=== PATIENT | female | born 1930 | race African-American/Black ===

== ENCOUNTER → 2017-08-30 | Outpatient (CLI) | payer MEDICARE, OTHER ==
[2017-08-30 11:18] LABS: ALBUMIN 3.4 g/dL (3.4-5.0); ALBUMIN/GLOBULIN RATIO 0.7 (1.0-1.7); CALCIUM 9.9 mg/dL (8.5-10.1); CREATININE 0.8 mg/dL (0.6-1.0); GFR 82.3; TOTAL BILIRUBIN 0.4 mg/dL (0.2-1.0); TOTAL PROTEIN 8.6 g/dL (6.4-8.2)
[2017-08-30 11:19] LABS: CHOLESTEROL/HDL RATIO 2.1
[2017-08-30 11:20] LABS: BASO # 0.1 x10^3/uL (0.0-0.2); BASO % 1 % (0-3); EOS % 4 % (0-3); HEMATOCRIT 37.8 % (36.0-47.0); HEMOGLOBIN 11.7 g/dL (12.0-15.5); LYMPH # 1.7 x10^3/uL (1.0-4.8); LYMPH % 29 % (24-48); MEAN CORPUSCULAR HEMOGLOBIN 26 pg (25-35); MEAN CORPUSCULAR HGB CONC 31 g/dL (31-37); MEAN CORPUSCULAR VOLUME 83 fL (79-100); MONO % 11 % (0-9); NEUT % 56 % (31-73); PLATELET COUNT 250 x10^3/uL (140-400); RED BLOOD COUNT 4.58 x10^6/uL (3.50-5.40); RED CELL DISTRIBUTION WIDTH 15.4 % (11.5-14.5); WHITE BLOOD COUNT 5.9 x10^3/uL (4.0-11.0)
[2017-08-30 11:26] LABS: BILIRUBIN,URINE NEGATIVE (NEG); GLUCOSE,URINE NEGATIVE (NEG); NITRITE,URINE NEGATIVE (NEG); PROTEIN,URINE NEGATIVE (NEG-TRACE); UROBILINOGEN,URINE 0.2 mg/dL (0.2 mg/dL)
[2017-08-30 11:40] LABS: BACTERIA,URINE FEW /HPF (0-FEW)
[2017-08-30 11:41] LABS: SQUAMOUS EPITHELIAL CELL,UR FEW /LPF
--- NOTE | 2017-08-30 15:08 | RAD ---
EXAM: Mandible 4 views. HISTORY: Palpable focus along the right aspect of the chin. COMPARISON: None. FINDINGS: An osseous excrescence along the right aspect of the body of the mandible appears to span 17 x 3 mm. It is somewhat ill-defined without a clearly established outer cortex. This is indeterminate. No associated lytic lesion is seen. No fractures are or other lesions are seen elsewhere. IMPRESSION: 1. 17 mm exophytic osseous lesion along the right aspect of the body of the mandible, not well delineated. CT of the mandible is recommended for further evaluation.
== END | disposition home or self-care (01) ==
LOC: RAD 10:12
PROVIDERS: ATTEND Internal Medicine
DX: I10 Essential (primary) hypertension (principal); M60.89 Other myositis, multiple sites
CPT/HCPCS: 36415; 70110; 80053; 80061; 81001; 83036; 84443; 85025; 87086

== ENCOUNTER 2018-12-03 14:16 | Inpatient (IN) | payer MEDICARE, OTHER ==
[2018-12-03] VITALS (8 sets, daily range): BP systolic 90–169; BP diastolic 52–93
[~2018-12-03] VITALS: Ht 157.5 cm; Wt 54.0 kg
[2018-12-03 15:40] LABS: BASO % 1 % (0-3); EOS # 0.1 x10^3/uL (0.0-0.7); EOS % 1 % (0-3); HEMATOCRIT 34.8 % (36.0-47.0); HEMOGLOBIN 11.1 g/dL (12.0-15.5); LYMPH # 1.5 x10^3/uL (1.0-4.8); LYMPH % 26 % (24-48); MEAN CORPUSCULAR HEMOGLOBIN 26 pg (25-35); MEAN CORPUSCULAR HGB CONC 32 g/dL (31-37); MEAN CORPUSCULAR VOLUME 81 fL (79-100); MONO # 0.5 x10^3/uL (0.0-1.1); MONO % 9 % (0-9); NEUT # 3.7 x10^3uL (1.8-7.7); NEUT % 64 % (31-73); PLATELET COUNT 261 x10^3/uL (140-400); RED BLOOD COUNT 4.29 x10^6/uL (3.50-5.40); RED CELL DISTRIBUTION WIDTH 15.8 % (11.5-14.5); WHITE BLOOD COUNT 5.8 x10^3/uL (4.0-11.0)
[2018-12-03 15:47] LABS: CALCIUM 9.4 mg/dL (8.5-10.1); CREATININE 0.7 mg/dL (0.6-1.0); GFR 95.8; POTASSIUM 4.1 mmol/L (3.5-5.1)
[2018-12-03 15:50] LABS: FECAL OB PT POSITIVE (NEG)
[2018-12-03 15:52] LABS: PROTHROMBIN TIME PATIENT 13.4 SEC (11.7-14.0)
--- NOTE | 2018-12-03 15:52 | PHYS DOC ---
Adult General Chief Complaint Chief Complaint: RECTAL BLEED HPI HPI Patient is a 87 year old female who presents with female with a transient painful if she had had diarrhea and had a bloody stool. She states she didn't went home and had another bloody stool and had some clots. Patient denies any pain. Review of Systems Review of Systems Constitutional: Denies fever or chills [] Eyes: Denies change in visual acuity, redness, or eye pain [] HENT: Denies nasal congestion or sore throat [] Respiratory: Denies cough or shortness of breath [] Cardiovascular: No additional information not addressed in HPI [] GI: Denies abdominal pain, nausea, vomiting. + bloody stools denies or diarrhea [] : Denies dysuria or hematuria [] Musculoskeletal: Denies back pain or joint pain [] Integument: Denies rash or skin lesions [] Neurologic: Denies headache, focal weakness or sensory changes [] All other systems were reviewed and found to be within normal limits, except as documented in this note. Current Medications Current Medications Current Medications Medications (Trade) Dose Ordered Sig/Antelmo Start Time Stop Time Status Last Admin Dose Admin Sodium Chloride 1,000 ml @ 1,000 mls/hr 1X ONCE 12/03/18 16:00 12/03/18 16:59 DC 12/03/18 16:18 1,000 MLS/HR Allergies Allergies Allergies Coded Allergies Type Severity Reaction Last Updated Verified No Known Drug Allergies 12/03/18 No Physical Exam Physical Exam Constitutional: Well developed, well nourished, no acute distress, non-toxic appearance. [] HENT: Normocephalic, atraumatic, bilateral external ears normal, oropharynx moist, no oral exudates, nose normal. [] Eyes: PERRLA, EOMI, conjunctiva normal, no discharge. [] Neck: Normal range of motion, no tenderness, supple, no stridor. [] Cardiovascular:Heart rate regular rhythm, no murmur [] Lungs & Thorax: Bilateral breath sounds clear to auscultation [] Abdomen: Bowel sounds normal, soft, no tenderness, no masses, no pulsatile masses. Dane blood in rectum. [] Skin: Warm, dry, no erythema, no rash. [] Back: No tenderness, no CVA tenderness. [] Extremities: No tenderness, no cyanosis, no clubbing, ROM intact, no edema. [] Neurologic: Alert and oriented X 3, normal motor function, normal sensory function, no focal deficits noted. [] Psychologic: Affect normal, judgement normal, mood normal. [] Current Patient Data Vital Signs Vital Signs Date Time Temp Pulse Resp B/P (MAP) Pulse Ox O2 Delivery O2 Flow Rate FiO2 12/03/18 15:10 98.0 90 16 163/79 (107) 94 Room Air 98.0 Lab Values Laboratory Tests Test 12/03/18 15:00 12/03/18 15:03 12/03/18 15:10 Stool Occult Blood Positive (NEG) Urine Collection Type U cath Urine Color Yellow Urine Clarity Clear Urine pH 5.0 Urine Specific [place] 1.025 Urine Protein Negative mg/dL (NEG-TRACE) Urine Glucose (UA) Negative mg/dL (NEG) Urine Ketones (Stick) Negative mg/dL (NEG) Urine Blood Negative (NEG) Urine Nitrite Negative (NEG) Urine Bilirubin Small (NEG) Urine Urobilinogen Dipstick 0.2 mg/dL (0.2 mg/dL) Urine Leukocyte Esterase Negative (NEG) Urine RBC 0 /HPF (0-2) Urine WBC 0 /HPF (0-4) Urine Squamous Epithelial Cells Occ /LPF Urine Transitional Epithelial Cells Occ /LPF Urine Bacteria 0 /HPF (0-FEW) Urine Mucus Marked /LPF White Blood Count 5.8 x10^3/uL (4.0-11.0) Red Blood Count 4.29 x10^6/uL (3.50-5.40) Hemoglobin 11.1 g/dL (12.0-15.5) L Hematocrit 34.8 % (36.0-47.0) L Mean Corpuscular Volume 81 fL (79-100) Mean Corpuscular Hemoglobin 26 pg (25-35) Mean Corpuscular Hemoglobin Concent 32 g/dL (31-37) Red Cell Distribution Width 15.8 % (11.5-14.5) H Platelet Count 261 x10^3/uL (140-400) Neutrophils (%) (Auto) 64 % (31-73) Lymphocytes (%) (Auto) 26 % (24-48) Monocytes (%) (Auto) 9 % (0-9) Eosinophils (%) (Auto) 1 % (0-3) Basophils (%) (Auto) 1 % (0-3) Neutrophils # (Auto) 3.7 x10^3uL (1.8-7.7) Lymphocytes # (Auto) 1.5 x10^3/uL (1.0-4.8) Monocytes # (Auto) 0.5 x10^3/uL (0.0-1.1) Eosinophils # (Auto) 0.1 x10^3/uL (0.0-0.7) Basophils # (Auto) 0.0 x10^3/uL (0.0-0.2) Prothrombin Time 13.4 SEC (11.7-14.0) Prothrombin Time INR 1.1 (0.8-1.1) Sodium Level 145 mmol/L (136-145) Potassium Level 4.1 mmol/L (3.5-5.1) Chloride Level 105 mmol/L (98-107) Carbon Dioxide Level 32 mmol/L (21-32) Anion Gap 8 (6-14) Blood Urea Nitrogen 20 mg/dL (7-20) Creatinine 0.7 mg/dL (0.6-1.0) Estimated GFR (Cockcroft-Gault) 95.8 Glucose Level 114 mg/dL (70-99) H Calcium Level 9.4 mg/dL (8.5-10.1) Laboratory Tests 12/03/18 15:10 Laboratory Tests 12/03/18 15:10 EKG EKG [] Radiology/Procedures Radiology/Procedures CT ABD PELV Impressions: [facility] [address] [place], [place] [id number] IMAGING REPORT Signed PATIENT: ALEXANDER CALI ACCOUNT: [id number] : 1930 LOCATION: ER AGE: 87 SEX: F EXAM STATUS: REG ER ORD. PHYSICIAN: JOHN TELLO APRN REASON: RECTAL BLEEDING PROCEDURE: CT ABD PELV W/ IV CONTRST ONLY Examination: CT ABD PELV W/ IV CONTRST ONLY History: RECTAL BLEEDING
IV OMNI 300 75 MLS Comparison/Correlation: None Findings: Axial images of the abdomen and pelvis were obtained following IV contrast. Sagittal and coronal reformatted images were provided. Linear scarring or atelectasis at the right lung base is present. Motion is evident at the right lung base upper abdomen slightly limiting assessment. Liver is normal. Spleen is normal. Pancreas is normal. Adrenal glands are normal. Bilateral low-attenuation renal lesions which are too small to characterize are present. These may represent cysts. Right renal inferior pole nonobstructive 1.7 cm diameter calculus is present. Infrarenal fusiform abdominal aortic aneurysm measuring up to 3.2 cm diameter is present. This has a length of 6 cm. Atheromatous involvement is present. Ectasia of the common iliac arteries noted. Urinary bladder is unremarkable. Marked diverticulosis of the colon is present without findings of acute inflammation. No bowel obstruction. No definite inflammatory findings about the cecum. Minimal mesenteric fat may limit assessment however. No extraluminal gas. No loculated collections. L1-2 significant disc space narrowing is present. Severe L5/S1 disc space narrowing is present. Impression: Marked diverticulosis. No evidence of mass lesion or inflammatory process although evaluation is somewhat limited with minimal mesenteric fat and lack of oral/rectal contrast. Nonobstructive right renal calculus. Fusiform abdominal aortic aneurysm. PQRS Compliance Statement: One or more of the following individualized dose reduction techniques were utilized for this examination: 1. Automated exposure control 2. Adjustment of the mA and/or kV according to patient size 3. Use of iterative reconstruction technique Electronically signed by: Henok Pollack MD (12/03/2018 5:37 PM) [facility] DICTATED and SIGNED BY: HENOK POLLACK MD DATE: 12/03/18 1726 Course & Med Decision Making Course & Med Decision Making Patient is a 87 year old female who presents with female with a transient painful if she had had diarrhea and had a bloody stool. She states she didn't went home and had another bloody stool and had some clots. Patient denies any pain, dizziness, shortness of air, chest pain, syncope, weakness, recent illness , nausea, vomiting, abdominal pain, numbness or tingling. Vital signs are within normal limits. Abdomen is soft and nontender. Lungs are clear to auscultation all lobes. It is membranes are moist and pink. Skin is pink warm and dry. Patient speaks in full clear sentences. Neurologically intact. PERRLA. No extremity swelling. Patient states she takes ibuprofen daily for arthritis. Fecal occult positive. Blood work within normal limits. 1634: Have spoken to Dr. Quintana about admission for the patient. Dr Quintana has given me admission orders and states that his CT comes back negative to order a GI bleed scan. Patient is stable and in no distress. CT ABD PELV shows Marked diverticulosis. No evidence of mass lesion or inflammatory process although evaluation is somewhat limited with minimal mesenteric fat and lack of oral/rectal contrast. Nonobstructive right renal calculus. Fusiform abdominal aortic aneurysm. 1800: I have talked to Dr. Bennett with GI to make him aware of the patient. No orders Given at this time. Rectal Exam: Normal tone, No mass, Positive control Stool: Bloody Brown Guaiac: Positive 1841: blood pressure has risen to 209/95 with heart rate of 93. Patient is not dizzy, light headed or soa. Patient is alert and oriented and ambulatory. Patient has now has 5 blood stools total only 3rd since been in ED. No history of hypertension. I have spoken to Dr Quintana about the patients hemoglobin drop from 11.1 to 9.9 and her continued stools. No orders at this time. Dragon Disclaimer Dragon Disclaimer This electronic medical record was generated, in whole or in part, using a voice recognition dictation system. Departure Departure Impression: Primary Impression: GI bleed Disposition: ADMITTED INPATIENT Admitting Physician: Ranjith Quintana Condition: STABLE Referrals: RANJITH QUINTANA MD (PCP) Problem Qualifiers Primary Impression: GI bleed GI bleed type/associated pathology: unspecified gastrointestinal hemorrhage type Qualified Codes: K92.2 - Gastrointestinal hemorrhage, unspecified JOHN TELLO SELF STORAGE MANAGER Dec 03, 2018 15:52
[2018-12-03] MEDS ORDERED: IV NORMAL SALINE 1000ML BAG 1,000 ML IV ONE (16:00)
[2018-12-03] MEDS ORDERED: CONTRAST GIVEN. MC PRN (16:45)
[2018-12-03] MEDS ORDERED: ONDANSETRON PF 4 MG/2 ML VIAL. IV PRN (16:45)
[2018-12-03] MEDS ORDERED: IOHEXOL 300 MG/ML 100ML VIAL. IV ONE (16:45)
[2018-12-03 16:57] LABS: BILIRUBIN,URINE SMALL (NEG); CLARITY,URINE CLEAR; COLOR,URINE YELLOW; NITRITE,URINE NEGATIVE (NEG); PROTEIN,URINE NEGATIVE (NEG-TRACE); UROBILINOGEN,URINE 0.2 mg/dL (0.2 mg/dL)
[2018-12-03 17:05] LABS: BACTERIA,URINE 0 /HPF (0-FEW); RBC,URINE 0 /HPF (0-2); SQUAMOUS EPITHELIAL CELL,UR OCC /LPF; WBC,URINE 0 /HPF (0-4)
--- NOTE | 2018-12-03 17:40 | RAD ---
Examination: CT ABD PELV W/ IV CONTRST ONLY History: RECTAL BLEEDING
IV OMNI 300 75 MLS Comparison/Correlation: None Findings: Axial images of the abdomen and pelvis were obtained following IV contrast. Sagittal and coronal reformatted images were provided. Linear scarring or atelectasis at the right lung base is present. Motion is evident at the right lung base upper abdomen slightly limiting assessment. Liver is normal. Spleen is normal. Pancreas is normal. Adrenal glands are normal. Bilateral low-attenuation renal lesions which are too small to characterize are present. These may represent cysts. Right renal inferior pole nonobstructive 1.7 cm diameter calculus is present. Infrarenal fusiform abdominal aortic aneurysm measuring up to 3.2 cm diameter is present. This has a length of 6 cm. Atheromatous involvement is present. Ectasia of the common iliac arteries noted. Urinary bladder is unremarkable. Marked diverticulosis of the colon is present without findings of acute inflammation. No bowel obstruction. No definite inflammatory findings about the cecum. Minimal mesenteric fat may limit assessment however. No extraluminal gas. No loculated collections. L1-2 significant disc space narrowing is present. Severe L5/S1 disc space narrowing is present. Impression: Marked diverticulosis. No evidence of mass lesion or inflammatory process although evaluation is somewhat limited with minimal mesenteric fat and lack of oral/rectal contrast. Nonobstructive right renal calculus. Fusiform abdominal aortic aneurysm. PQRS Compliance Statement: One or more of the following individualized dose reduction techniques were utilized for this examination: 1. Automated exposure control 2. Adjustment of the mA and/or kV according to patient size 3. Use of iterative reconstruction technique Electronically signed by: Henok Weathers MD (12/03/2018 5:37 PM) [facility]
[2018-12-03] MEDS ORDERED: cloNIDine HCL 0.1 MG TABLET PO ONE (18:45)
--- NOTE | 2018-12-03 19:30 | NUR ---
PATIENT TO ROOM 111 AT 1925, ADMITTED TO DR QUINTANA FOR GI BLEED. PT STATES SHE HAD BLOODY STOOL X2 WITH CLOTS AT HOME, AND CONTINUED TO HAVE BLOODY STOOLS IN ER (HGB DROP FROM 11.1 TO 9.9 WHILE IN ER.) UPON ARRIVAL PATIENT A&OX4, ALL VSS, NO COMPLAINTS OF PAIN. PT STILL WITH BRIGHT RED BLOODY STOOLS, VOID VIA BEDPAN FAMILY AT BEDSIDE- WAITING FOR BLEED SCAN
[2018-12-03] MEDS ORDERED: HEPARIN for NUC MED 500 UNIT/5 ML DISP.SYRIN. IV ONE (20:00)
--- NOTE | 2018-12-03 20:54 | NUR ---
PT CURRENTLY GETTING BLEED SCAN, RN AT BEDSIDE WITH PATIENT ON MONITOR.
[2018-12-03] MEDS: IV NORMAL SALINE 1000ML BAG 1,000 ML IV SCH (21:00)
--- NOTE | 2018-12-03 21:48 | RAD ---
NUCLEAR MEDICINE TAGGED RBC SCAN 12/03/2018 Clinical Indication: Bright red blood per rectum Technique: Patient was injected with 25.4 mCi of technetium 99m labeled red blood cells using Ultratag technique. Then anterior dynamic images of the abdomen were obtained only for 30 minutes as patient's nurse. The examination due to patient condition. Findings: There is abnormal focal accumulation of tracer in the left upper quadrant near the splenic flexure with transient distally. IMPRESSION: Findings most consistent with active GI bleed, likely from the splenic flexure. This result was discussed with pateint's nurse, Sloane , by telephone at 9:45 PM 12/03/[address] Anthony Agosto. Electronically signed by: Anthony Agosto MD (12/03/2018 9:45 PM) [employer]
[2018-12-03 22:00] LABS: HEMATOCRIT 23.8 % (36.0-47.0); HEMOGLOBIN 7.4 g/dL (12.0-15.5); RED BLOOD COUNT 2.89 x10^6/uL (3.50-5.40); RED CELL DISTRIBUTION WIDTH 15.5 % (11.5-14.5)
--- NOTE | 2018-12-03 22:13 | NUR ---
PT BACK FROM BLEEDING SCAN- STILL PASSING BRIGHT RED STOOLS. HGB RECHECKED, DOWN TO 7.4 FROM 9.9, BLEEDING SCAN POSITIVE. DR QUINTANA CALLED AT 2205- NOTIFIED OF BLEEDING SCAN RESULTS AND RECENT LABS. NO BLOOD TO BE GIVEN AT THIS TIME, WILL RECHECK H&H IN THE MORNING. CONSULTS PLACED FOR GENERAL SURGEON AND IR. FAMILY UPDATED, PT RESTING PEACEFULLY ALL VSS.
--- NOTE | 2018-12-03 22:40 | NUR ---
DR KAPADIA CALLED AT 2230- NOTIFIED OF BLEED SCAN RESULTS AND MOST RECENT HGB. ORDERS RECEIVED TO INFUSED 1 UNIT PRBCS AND RECHECK IN THE AM.
[2018-12-04] VITALS (24 sets, daily range): BP systolic 89–155; BP diastolic 43–72
[2018-12-04 04:54] LABS: BASO % 1 % (0-3); EOS # 0.1 x10^3/uL (0.0-0.7); EOS % 1 % (0-3); HEMATOCRIT 28.3 % (36.0-47.0); HEMOGLOBIN 9.2 g/dL (12.0-15.5); LYMPH # 1.8 x10^3/uL (1.0-4.8); LYMPH % 28 % (24-48); MEAN CORPUSCULAR HEMOGLOBIN 27 pg (25-35); MEAN CORPUSCULAR HGB CONC 32 g/dL (31-37); MEAN CORPUSCULAR VOLUME 84 fL (79-100); MONO # 0.7 x10^3/uL (0.0-1.1); MONO % 11 % (0-9); NEUT # 3.9 x10^3uL (1.8-7.7); NEUT % 60 % (31-73); PLATELET COUNT 175 x10^3/uL (140-400); RED BLOOD COUNT 3.39 x10^6/uL (3.50-5.40); RED CELL DISTRIBUTION WIDTH 15.4 % (11.5-14.5); WHITE BLOOD COUNT 6.5 x10^3/uL (4.0-11.0)
[2018-12-04 05:23] LABS: ALBUMIN 2.3 g/dL (3.4-5.0); ALBUMIN/GLOBULIN RATIO 0.7 (1.0-1.7); CREATININE 0.7 mg/dL (0.6-1.0); GFR 95.8; POTASSIUM 4.1 mmol/L (3.5-5.1); TOTAL BILIRUBIN 0.5 mg/dL (0.2-1.0); TOTAL PROTEIN 5.6 g/dL (6.4-8.2)
[2018-12-04] MEDS: IV NORMAL SALINE 1000ML BAG 1,000 ML IV SCH (08:19)
--- NOTE | 2018-12-04 08:27 | PDOC2 ---
MAIK JAY HARP REPAIRER 12/04/18 0827: CONSULT Date of Consult Date of Consult DATE: 12/04/18 TIME: 08:18 Reason for Consult Reason for Consult: gi bleed Referring Physician Referring Physician: ER Identification/Chief Complaint Chief Complaint rectal bleeding Source Source: Chart review, Patient History of Present Illness Reason for Visit: Acute rectal bleeding starting yesterday. Denies any abdominal pain or nausea/ emesis. No lightheaded or dizziness. No previous issues with GI bleeding. She does take ibuprofen daily for joint pain. Nursing reports bleeding has slowed down, still some clots in stool Unit of blood last night Past Surgical History Past Surgical History: Hysterectomy Family History Family History: Other (no colon cancer) Social History No ALCOHOL: none Drugs: None Current Problem List Problem List Problems Medical Problems: (1) GI bleed Status: Acute Current Medications Current Medications Current Medications Sodium Chloride 1,000 ml @ 1,000 mls/hr 1X ONCE IV Last administered on at 16:18; Start 12/03/18 at 16:00; Stop 12/03/18 at 16:59; Status DC Iohexol (Omnipaque 300 Mg/ml) 75 ml 1X ONCE IV Last administered on 12/03/18at 17:11; Start 12/03/18 at 16:45; Stop 12/03/18 at 16:46; Status DC Info (CONTRAST GIVEN -- Rx MONITORING) 1 each PRN DAILY PRN MC SEE COMMENTS; Start 12/03/18 at 16:45; Stop 12/05/18 at 16:44 Ondansetron HCl (Zofran) 4 mg PRN Q8HRS PRN IV NAUSEA/VOMITING Last administered on 12/03/18at 21:33; Start 12/03/18 at 16:45; Stop 12/04/18 at 16:44 Sodium Chloride 1,000 ml @ 75 mls/hr [id number] IV Last administered on at 21:00; Start 12/03/18 at 16:43; Stop 12/04/18 at 16:42 Clonidine HCl (Catapres) 0.1 mg 1X ONCE PO Last administered on 12/03/18at 19: 10; Start 12/03/18 at 18:45; Stop 12/03/18 at 18:46; Status DC Heparin Sodium (Porcine) (HEPARIN for NUC MED) 100 unit 1X ONCE IV ; Start at 20:00; Stop 12/03/18 at 20:12; Status DC Allergies Allergies: Coded Allergies: No Known Drug Allergies (Unverified , 12/03/18) ROS General: No: Chills, Other (fevers) PSYCHOLOGICAL ROS: No: Anxiety, Depression Eyes: No Blurry vision, No Double vision HEENT: No: Heacaches, Sore Throat Hematological and Lymphatic: YES: Bleeding Problems; No: Blood Clots Respiratory: No: Cough, Shortness of breath Cardiovascular: No Chest Pain, No Palpitations Gastrointestinal: No Nausea, No Vomiting, No Abdominal Pain Genitourinary: No Dysuria, No Hematuria Musculoskeletal: No Joint Pain, No Muscle Pain Neurological: No Behavorial Changes, No Impaired Coord/balance Skin: No Pruritus, No Rash Physical Exam General: Alert, Oriented X3, Cooperative, No acute distress HEENT: PERRLA, Mucous membr. moist/pink Lungs: Clear to auscultation, Normal air movement Heart: Regular rate, Normal S1, Normal S2, No murmurs Abdomen: Soft, No tenderness, Other (ND) Extremities: No clubbing, No cyanosis Skin: No rashes, No breakdown Neuro: Normal gait, Normal speech Psych/Mental Status: Mental status NL, Mood NL MUSCULOSKELETAL: No deformity, No swelling Vitals VITALS Vital Signs Date Time Temp Pulse Resp B/P (MAP) Pulse Ox O2 Delivery O2 Flow Rate FiO2 12/04/18 06:00 77 12 122/49 (73) 100 Nasal Cannula 1.0 12/04/18 04:00 97.4 97.4 Labs Labs Laboratory Tests Test 12/03/18 15:00 12/03/18 15:03 12/03/18 15:10 12/03/18 18:00 Stool Occult Blood Positive (NEG) Urine Collection Type U cath Urine Color Yellow Urine Clarity Clear Urine pH 5.0 Urine Specific [place] 1.025 Urine Protein Negative mg/dL (NEG-TRACE) Urine Glucose (UA) Negative mg/dL (NEG) Urine Ketones (Stick) Negative mg/dL (NEG) Urine Blood Negative (NEG) Urine Nitrite Negative (NEG) Urine Bilirubin Small (NEG) Urine Urobilinogen Dipstick 0.2 mg/dL (0.2 mg/dL) Urine Leukocyte Esterase Negative (NEG) Urine RBC 0 /HPF (0-2) Urine WBC 0 /HPF (0-4) Urine Squamous Epithelial Cells Occ /LPF Urine Transitional Epithelial Cells Occ /LPF Urine Bacteria 0 /HPF (0-FEW) Urine Mucus Marked /LPF White Blood Count 5.8 x10^3/uL (4.0-11.0) Red Blood Count 4.29 x10^6/uL (3.50-5.40) Hemoglobin 11.1 g/dL (12.0-15.5) 9.9 g/dL (12.0-15.5) Hematocrit 34.8 % (36.0-47.0) Mean Corpuscular Volume 81 fL (79-100) Mean Corpuscular Hemoglobin 26 pg (25-35) Mean Corpuscular Hemoglobin Concent 32 g/dL (31-37) Red Cell Distribution Width 15.8 % (11.5-14.5) Platelet Count 261 x10^3/uL (140-400) Neutrophils (%) (Auto) 64 % (31-73) Lymphocytes (%) (Auto) 26 % (24-48) Monocytes (%) (Auto) 9 % (0-9) Eosinophils (%) (Auto) 1 % (0-3) Basophils (%) (Auto) 1 % (0-3) Neutrophils # (Auto) 3.7 x10^3uL (1.8-7.7) Lymphocytes # (Auto) 1.5 x10^3/uL (1.0-4.8) Monocytes # (Auto) 0.5 x10^3/uL (0.0-1.1) Eosinophils # (Auto) 0.1 x10^3/uL (0.0-0.7) Basophils # (Auto) 0.0 x10^3/uL (0.0-0.2) Prothrombin Time 13.4 SEC (11.7-14.0) Prothromb Time International Ratio 1.1 (0.8-1.1) Sodium Level 145 mmol/L (136-145) Potassium Level 4.1 mmol/L (3.5-5.1) Chloride Level 105 mmol/L (98-107) Carbon Dioxide Level 32 mmol/L (21-32) Anion Gap 8 (6-14) Blood Urea Nitrogen 20 mg/dL (7-20) Creatinine 0.7 mg/dL (0.6-1.0) Estimated GFR (Cockcroft-Gault) 95.8 Glucose Level 114 mg/dL (70-99) Calcium Level 9.4 mg/dL (8.5-10.1) Test 12/03/18 21:55 12/04/18 04:30 White Blood Count 6.0 x10^3/uL (4.0-11.0) 6.5 x10^3/uL (4.0-11.0) Red Blood Count 2.89 x10^6/uL (3.50-5.40) 3.39 x10^6/uL (3.50-5.40) Hemoglobin 7.4 g/dL (12.0-15.5) 9.2 g/dL (12.0-15.5) Hematocrit 23.8 % (36.0-47.0) 28.3 % (36.0-47.0) Mean Corpuscular Volume 82 fL (79-100) 84 fL (79-100) Mean Corpuscular Hemoglobin 26 pg (25-35) 27 pg (25-35) Mean Corpuscular Hemoglobin Concent 31 g/dL (31-37) 32 g/dL (31-37) Red Cell Distribution Width 15.5 % (11.5-14.5) 15.4 % (11.5-14.5) Platelet Count 198 x10^3/uL (140-400) 175 x10^3/uL (140-400) Neutrophils (%) (Auto) 60 % (31-73) Lymphocytes (%) (Auto) 28 % (24-48) Monocytes (%) (Auto) 11 % (0-9) Eosinophils (%) (Auto) 1 % (0-3) Basophils (%) (Auto) 1 % (0-3) Neutrophils # (Auto) 3.9 x10^3uL (1.8-7.7) Lymphocytes # (Auto) 1.8 x10^3/uL (1.0-4.8) Monocytes # (Auto) 0.7 x10^3/uL (0.0-1.1) Eosinophils # (Auto) 0.1 x10^3/uL (0.0-0.7) Basophils # (Auto) 0.0 x10^3/uL (0.0-0.2) Sodium Level 146 mmol/L (136-145) Potassium Level 4.1 mmol/L (3.5-5.1) Chloride Level 109 mmol/L (98-107) Carbon Dioxide Level 31 mmol/L (21-32) Anion Gap 6 (6-14) Blood Urea Nitrogen 15 mg/dL (7-20) Creatinine 0.7 mg/dL (0.6-1.0) Estimated GFR (Cockcroft-Gault) 95.8 BUN/Creatinine Ratio 21 (6-20) Glucose Level 108 mg/dL (70-99) Calcium Level 8.0 mg/dL (8.5-10.1) Total Bilirubin 0.5 mg/dL (0.2-1.0) Aspartate Amino Transf (AST/SGOT) 12 U/L (15-37) Alanine Aminotransferase (ALT/SGPT) 11 U/L (14-59) Alkaline Phosphatase 57 U/L (46-116) Total Protein 5.6 g/dL (6.4-8.2) Albumin 2.3 g/dL (3.4-5.0) Albumin/Globulin Ratio 0.7 (1.0-1.7) Laboratory Tests Test 12/03/18 15:00 12/03/18 15:03 12/03/18 15:10 12/03/18 18:00 Stool Occult Blood Positive (NEG) Urine Collection Type U cath Urine Color Yellow Urine Clarity Clear Urine pH 5.0 Urine Specific [place] 1.025 Urine Protein Negative mg/dL (NEG-TRACE) Urine Glucose (UA) Negative mg/dL (NEG) Urine Ketones (Stick) Negative mg/dL (NEG) Urine Blood Negative (NEG) Urine Nitrite Negative (NEG) Urine Bilirubin Small (NEG) Urine Urobilinogen Dipstick 0.2 mg/dL (0.2 mg/dL) Urine Leukocyte Esterase Negative (NEG) Urine RBC 0 /HPF (0-2) Urine WBC 0 /HPF (0-4) Urine Squamous Epithelial Cells Occ /LPF Urine Transitional Epithelial Cells Occ /LPF Urine Bacteria 0 /HPF (0-FEW) Urine Mucus Marked /LPF White Blood Count 5.8 x10^3/uL (4.0-11.0) Red Blood Count 4.29 x10^6/uL (3.50-5.40) Hemoglobin 11.1 g/dL (12.0-15.5) 9.9 g/dL (12.0-15.5) Hematocrit 34.8 % (36.0-47.0) Mean Corpuscular Volume 81 fL (79-100) Mean Corpuscular Hemoglobin 26 pg (25-35) Mean Corpuscular Hemoglobin Concent 32 g/dL (31-37) Red Cell Distribution Width 15.8 % (11.5-14.5) Platelet Count 261 x10^3/uL (140-400) Neutrophils (%) (Auto) 64 % (31-73) Lymphocytes (%) (Auto) 26 % (24-48) Monocytes (%) (Auto) 9 % (0-9) Eosinophils (%) (Auto) 1 % (0-3) Basophils (%) (Auto) 1 % (0-3) Neutrophils # (Auto) 3.7 x10^3uL (1.8-7.7) Lymphocytes # (Auto) 1.5 x10^3/uL (1.0-4.8) Monocytes # (Auto) 0.5 x10^3/uL (0.0-1.1) Eosinophils # (Auto) 0.1 x10^3/uL (0.0-0.7) Basophils # (Auto) 0.0 x10^3/uL (0.0-0.2) Prothrombin Time 13.4 SEC (11.7-14.0) Prothromb Time International Ratio 1.1 (0.8-1.1) Sodium Level 145 mmol/L (136-145) Potassium Level 4.1 mmol/L (3.5-5.1) Chloride Level 105 mmol/L (98-107) Carbon Dioxide Level 32 mmol/L (21-32) Anion Gap 8 (6-14) Blood Urea Nitrogen 20 mg/dL (7-20) Creatinine 0.7 mg/dL (0.6-1.0) Estimated GFR (Cockcroft-Gault) 95.8 Glucose Level 114 mg/dL (70-99) Calcium Level 9.4 mg/dL (8.5-10.1) Test 12/03/18 21:55 12/04/18 04:30 White Blood Count 6.0 x10^3/uL (4.0-11.0) 6.5 x10^3/uL (4.0-11.0) Red Blood Count 2.89 x10^6/uL (3.50-5.40) 3.39 x10^6/uL (3.50-5.40) Hemoglobin 7.4 g/dL (12.0-15.5) 9.2 g/dL (12.0-15.5) Hematocrit 23.8 % (36.0-47.0) 28.3 % (36.0-47.0) Mean Corpuscular Volume 82 fL (79-100) 84 fL (79-100) Mean Corpuscular Hemoglobin 26 pg (25-35) 27 pg (25-35) Mean Corpuscular Hemoglobin Concent 31 g/dL (31-37) 32 g/dL (31-37) Red Cell Distribution Width 15.5 % (11.5-14.5) 15.4 % (11.5-14.5) Platelet Count 198 x10^3/uL (140-400) 175 x10^3/uL (140-400) Neutrophils (%) (Auto) 60 % (31-73) Lymphocytes (%) (Auto) 28 % (24-48) Monocytes (%) (Auto) 11 % (0-9) Eosinophils (%) (Auto) 1 % (0-3) Basophils (%) (Auto) 1 % (0-3) Neutrophils # (Auto) 3.9 x10^3uL (1.8-7.7) Lymphocytes # (Auto) 1.8 x10^3/uL (1.0-4.8) Monocytes # (Auto) 0.7 x10^3/uL (0.0-1.1) Eosinophils # (Auto) 0.1 x10^3/uL (0.0-0.7) Basophils # (Auto) 0.0 x10^3/uL (0.0-0.2) Sodium Level 146 mmol/L (136-145) Potassium Level 4.1 mmol/L (3.5-5.1) Chloride Level 109 mmol/L (98-107) Carbon Dioxide Level 31 mmol/L (21-32) Anion Gap 6 (6-14) Blood Urea Nitrogen 15 mg/dL (7-20) Creatinine 0.7 mg/dL (0.6-1.0) Estimated GFR (Cockcroft-Gault) 95.8 BUN/Creatinine Ratio 21 (6-20) Glucose Level 108 mg/dL (70-99) Calcium Level 8.0 mg/dL (8.5-10.1) Total Bilirubin 0.5 mg/dL (0.2-1.0) Aspartate Amino Transf (AST/SGOT) 12 U/L (15-37) Alanine Aminotransferase (ALT/SGPT) 11 U/L (14-59) Alkaline Phosphatase 57 U/L (46-116) Total Protein 5.6 g/dL (6.4-8.2) Albumin 2.3 g/dL (3.4-5.0) Albumin/Globulin Ratio 0.7 (1.0-1.7) Assessment/Plan Assessment/Plan GI bleed CT with diverticulosis, Bleeding scan concern for bleed in splenic flexure-- bleeding has slowed hgb 9, after transfusion will await IR consult MATTHEW GUZMAN MD 12/04/18 0939: CONSULT Assessment/Plan Assessment/Plan Pt seen and examined. Agree with Ms. Jay's note Pt without c/o, denies pain, N/V abd soft, Nd, NTTP nursing notes clots in stool have decreased hopefully will be self limiting, but will ask IR to evaluate Thanks for consult! MAIK JAY APRN Dec 04, 2018 08:27 MATTHEW GUZMAN MD Dec 04, 2018 09:39
--- NOTE | 2018-12-04 09:35 | PDOC ---
Provider Note Provider Note Pt seen in ICU.#[id number]. spoke with GI. SHADIA QUINTANA MD Dec 04, 2018 09:35
--- NOTE | 2018-12-04 09:43 | PDOC2 ---
GI CONSULT Reason For Consult: GI Bleed HPI: HPI: 87 y/o female seen in ICU earlier this morning. At [employer] yesterday while she was waiting for her niece to get the car, she felt like she might have diarrhea. By the time she reached the restroom, her underwear was soaked in blood - "in between red and black." Denies abd pain, sweating, SOA, lightheadedness. Bleeding happened a few times (she's not sure with or without stool) but is slowing down now. No similar symptoms in the past. Per RN, received in report that she passed stool with blood clots overnight. Denies reflux/heartburn, dysphagia, n/v, change in appetite, weight loss, and constipation. No previous EGD or colonoscopy. No GB, liver, pancreas, or PUD history. Says has labs with her PCP every 3 months. Takes ibuprofen PRN ( "maybe once a day") for bodyaches. She also takes a water pill " occasionally... when I feel like I need more water." Her friend is present toward the end of the exam - says she has a h/o sarcoidosis, pneumonia, and GERD. Initial Hgb was 11.1 (compared to 11.7 in 08/2017), then dropped to 7.4, then up to 9.2 s/p transfusion [address] showed diverticulosis and bleeding scan was positive in the splenic flexure. IR asked to see, surgery also following. PMH: PMH: ?HTN, ?sarcoidosis, ?GERD, diverticulosis, nephrolithiasis, AAA hysterectomy FH: Family History: No pertinent hx (denies GI cancers) Social History: Smoke: No ALCOHOL: none Drugs: None ROS: GEN: Denies fevers, chills, sweats HEENT: Denies blurred vision, sore throat CV: Denies chest pain RESP: Denies shortness of air, cough GI: Per HPI : Denies hematuria, dysuria ENDO: Denies weight changes NEURO: Denies confusion, dizziness MSK: Denies weakness, joint pain/swelling SKIN: Denies jaundice, pruritus Vitals: Vitals: Vital Signs Date Time Temp Pulse Resp B/P (MAP) Pulse Ox O2 Delivery O2 Flow Rate FiO2 12/04/18 09:00 80 12 116/57 (76) 100 Nasal Cannula 1.0 12/04/18 07:00 98.2 98.2 Labs: Labs: Laboratory Tests Test 12/03/18 15:00 12/03/18 15:03 12/03/18 15:10 12/03/18 18:00 Stool Occult Blood Positive (NEG) Urine Collection Type U cath Urine Color Yellow Urine Clarity Clear Urine pH 5.0 Urine Specific [facility] 1.025 Urine Protein Negative mg/dL (NEG-TRACE) Urine Glucose (UA) Negative mg/dL (NEG) Urine Ketones (Stick) Negative mg/dL (NEG) Urine Blood Negative (NEG) Urine Nitrite Negative (NEG) Urine Bilirubin Small (NEG) Urine Urobilinogen Dipstick 0.2 mg/dL (0.2 mg/dL) Urine Leukocyte Esterase Negative (NEG) Urine RBC 0 /HPF (0-2) Urine WBC 0 /HPF (0-4) Urine Squamous Epithelial Cells Occ /LPF Urine Transitional Epithelial Cells Occ /LPF Urine Bacteria 0 /HPF (0-FEW) Urine Mucus Marked /LPF White Blood Count 5.8 x10^3/uL (4.0-11.0) Red Blood Count 4.29 x10^6/uL (3.50-5.40) Hemoglobin 11.1 g/dL (12.0-15.5) 9.9 g/dL (12.0-15.5) Hematocrit 34.8 % (36.0-47.0) Mean Corpuscular Volume 81 fL (79-100) Mean Corpuscular Hemoglobin 26 pg (25-35) Mean Corpuscular Hemoglobin Concent 32 g/dL (31-37) Red Cell Distribution Width 15.8 % (11.5-14.5) Platelet Count 261 x10^3/uL (140-400) Neutrophils (%) (Auto) 64 % (31-73) Lymphocytes (%) (Auto) 26 % (24-48) Monocytes (%) (Auto) 9 % (0-9) Eosinophils (%) (Auto) 1 % (0-3) Basophils (%) (Auto) 1 % (0-3) Neutrophils # (Auto) 3.7 x10^3uL (1.8-7.7) Lymphocytes # (Auto) 1.5 x10^3/uL (1.0-4.8) Monocytes # (Auto) 0.5 x10^3/uL (0.0-1.1) Eosinophils # (Auto) 0.1 x10^3/uL (0.0-0.7) Basophils # (Auto) 0.0 x10^3/uL (0.0-0.2) Prothrombin Time 13.4 SEC (11.7-14.0) Prothromb Time International Ratio 1.1 (0.8-1.1) Sodium Level 145 mmol/L (136-145) Potassium Level 4.1 mmol/L (3.5-5.1) Chloride Level 105 mmol/L (98-107) Carbon Dioxide Level 32 mmol/L (21-32) Anion Gap 8 (6-14) Blood Urea Nitrogen 20 mg/dL (7-20) Creatinine 0.7 mg/dL (0.6-1.0) Estimated GFR (Cockcroft-Gault) 95.8 Glucose Level 114 mg/dL (70-99) Calcium Level 9.4 mg/dL (8.5-10.1) Test 12/03/18 21:55 12/04/18 04:30 White Blood Count 6.0 x10^3/uL (4.0-11.0) 6.5 x10^3/uL (4.0-11.0) Red Blood Count 2.89 x10^6/uL (3.50-5.40) 3.39 x10^6/uL (3.50-5.40) Hemoglobin 7.4 g/dL (12.0-15.5) 9.2 g/dL (12.0-15.5) Hematocrit 23.8 % (36.0-47.0) 28.3 % (36.0-47.0) Mean Corpuscular Volume 82 fL (79-100) 84 fL (79-100) Mean Corpuscular Hemoglobin 26 pg (25-35) 27 pg (25-35) Mean Corpuscular Hemoglobin Concent 31 g/dL (31-37) 32 g/dL (31-37) Red Cell Distribution Width 15.5 % (11.5-14.5) 15.4 % (11.5-14.5) Platelet Count 198 x10^3/uL (140-400) 175 x10^3/uL (140-400) Neutrophils (%) (Auto) 60 % (31-73) Lymphocytes (%) (Auto) 28 % (24-48) Monocytes (%) (Auto) 11 % (0-9) Eosinophils (%) (Auto) 1 % (0-3) Basophils (%) (Auto) 1 % (0-3) Neutrophils # (Auto) 3.9 x10^3uL (1.8-7.7) Lymphocytes # (Auto) 1.8 x10^3/uL (1.0-4.8) Monocytes # (Auto) 0.7 x10^3/uL (0.0-1.1) Eosinophils # (Auto) 0.1 x10^3/uL (0.0-0.7) Basophils # (Auto) 0.0 x10^3/uL (0.0-0.2) Sodium Level 146 mmol/L (136-145) Potassium Level 4.1 mmol/L (3.5-5.1) Chloride Level 109 mmol/L (98-107) Carbon Dioxide Level 31 mmol/L (21-32) Anion Gap 6 (6-14) Blood Urea Nitrogen 15 mg/dL (7-20) Creatinine 0.7 mg/dL (0.6-1.0) Estimated GFR (Cockcroft-Gault) 95.8 BUN/Creatinine Ratio 21 (6-20) Glucose Level 108 mg/dL (70-99) Calcium Level 8.0 mg/dL (8.5-10.1) Total Bilirubin 0.5 mg/dL (0.2-1.0) Aspartate Amino Transf (AST/SGOT) 12 U/L (15-37) Alanine Aminotransferase (ALT/SGPT) 11 U/L (14-59) Alkaline Phosphatase 57 U/L (46-116) Total Protein 5.6 g/dL (6.4-8.2) Albumin 2.3 g/dL (3.4-5.0) Albumin/Globulin Ratio 0.7 (1.0-1.7) Allergies: Coded Allergies: No Known Drug Allergies (Unverified , 12/03/18) Medications: Current Medications Medications (Trade) Dose Ordered Sig/Antelmo Route PRN Reason Start Time Stop Time Status Last Admin Dose Admin Sodium Chloride 1,000 ml @ 1,000 mls/hr 1X ONCE IV 12/03/18 16:00 12/03/18 16:59 DC 12/03/18 16:18 Iohexol (Omnipaque 300 Mg/ml) 75 ml 1X ONCE IV 12/03/18 16:45 12/03/18 16:46 DC 12/03/18 17:11 Ondansetron HCl (Zofran) 4 mg PRN Q8HRS PRN IV NAUSEA/VOMITING 12/03/18 16:45 12/04/18 16:44 12/03/18 21:33 Sodium Chloride 1,000 ml @ 75 mls/hr [id number] IV 12/03/18 16:43 12/04/18 16:42 12/04/18 08:19 Clonidine HCl (Catapres) 0.1 mg 1X ONCE PO 12/03/18 18:45 12/03/18 18:46 DC 12/03/18 19:10 Imaging: Imaging: CT A/P w/ IV contrast 12/03/18 Findings: Linear scarring or atelectasis at the right lung base is present. Motion is evident at the right lung base upper abdomen slightly limiting assessment. Liver is normal. Spleen is normal. Pancreas is normal. Adrenal glands are normal. Bilateral low-attenuation renal lesions which are too small to characterize are present. These may represent cysts. Right renal inferior pole nonobstructive 1.7 cm diameter calculus is present. Infrarenal fusiform abdominal aortic aneurysm measuring up to 3.2 cm diameter is present. This has a length of 6 cm. Atheromatous involvement is present. Ectasia of the common iliac arteries noted. Urinary bladder is unremarkable. Marked diverticulosis of the colon is present without findings of acute inflammation. No bowel obstruction. No definite inflammatory findings about the cecum. Minimal mesenteric fat may limit assessment however. No extraluminal gas. No loculated collections. L1-2 significant disc space narrowing is present. Severe L5/S1 disc space narrowing is present. Impression: Marked diverticulosis. No evidence of mass lesion or inflammatory process although evaluation is somewhat limited with minimal mesenteric fat and lack of oral/rectal contrast. Nonobstructive right renal calculus. Fusiform abdominal aortic aneurysm. Bleeding scan 12/03/18 Findings: There is abnormal focal accumulation of tracer in the left upper quadrant near the splenic flexure with transient distally. IMPRESSION: Findings most consistent with active GI bleed, likely from the splenic flexure. PE: GEN: NAD HEENT: Atraumatic, PERRL LUNGS: CTAB. NC HEART: RRR ABD: NABS, S/ND/NT EXTREMITY: No edema SKIN: No rashes, no jaundice NEURO/PSYCH: A & O 3, seems forgetful A/P: A/P: Hematochezia Anemia - chronic Diverticulosis, +bleeding scan CRC screen - none NSAID use -- ?diverticular bleed Bleeding hopefully slowing, Hgb better w/ transfusion. Continue NPO and observation for now, add PPI. No plans for 'scopes at this time. IR to see, surgery also following. MILENA ADRIAN Dec 04, 2018 09:42
--- NOTE | 2018-12-04 10:12 | HP ---
ADMIT DATE: 12/03/2018 PATIENT LOCATION: ICU room 111. REASON FOR ADMISSION TO THE HOSPITAL: Lower GI bleed. HISTORY OF PRESENT ILLNESS: The patient is an 87-year-old female, pretty healthy, except hypertension and she was at [employer] yesterday and she thought she had to have a bowel movement and she went to the toilet. There was bloody stool and the patient was brought to the hospital. She continues to have bleeding a couple of times in the hospital. The patient had a CT scan, which shows some diverticulosis. GI bleeding scan shows bleeding from the splenic flexure. The patient's hemoglobin dropped down to 7 and was given one unit of packed RBC and she was admitted to the ICU. PAST MEDICAL HISTORY: Hypertension. Otherwise, she is pretty healthy. PAST SURGICAL HISTORY: Hysterectomy. FAMILY HISTORY: Unremarkable. SOCIAL HISTORY: Pretty healthy. Denies smoking, alcohol or drug abuse. ALLERGIES: None. MEDICATIONS: She takes a water pill or a blood pressure pill once in a while. She takes Aleve p.r.n. for arthritis. REVIEW OF SYSTEMS: CARDIAC RAPHAEL: No chest pain. GASTROINTESTINAL: Has bloody stool. No vomiting. CONSTITUTIONAL: No fever. Rest of the 14 systems were reviewed and negative. PHYSICAL EXAMINATION: GENERAL: On examination, the patient is pleasant, not in any distress, seen in the ICU. VITAL SIGNS: Temperature 98, pulse 90, respirations 16, blood pressure 163/79 and 94% on room air. HEENT: Head is atraumatic. Pupils equal. The patient has partials. Oral cavity, no congestion. NECK: Supple. Thyroid not enlarged. JVD not elevated. CHEST: Symmetrical. CARDIOVASCULAR: S1, S2. LUNGS: Clear to auscultation. ABDOMEN: Soft. Scar of hysterectomy in the lower abdomen. Nontender. Bowel sounds are present. EXTERNAL GENITALIA: No Herrera. RECTAL: Deferred. EXTREMITIES: No calf tenderness, no edema. Pulses 1+. NEUROLOGICAL EXAMINATION: Moving all extremities. No focal deficits noted. LABORATORY DATA: Shows a white count is 6, hemoglobin 11 and platelets 261,000. Went low at 7.4; hemoglobin now 9.2 after one unit. INR 1.1. Electrolytes show sodium 145, potassium 4.1, chloride 105, bicarbonate 32, BUN 20, creatinine 0.7 and glucose 114. Urine was negative. LFTs were normal. CT scan of the abdomen and pelvis show diverticulosis. GI bleeding scan shows active GI bleed, probably from the splenic flexure. FINAL IMPRESSION: 1. Lower gastrointestinal bleed, bleeding coming from the colon, around splenic flexure. 2. Extensive diverticulosis. 3. Hypertension. 4. Occasionally, the patient takes Aleve. PLAN: Plan at this time was admit to the hospital, admit to ICU. Hemoglobin q. 6 hours. GI was consulted. Interventional Radiology consulted. Maybe they could do interventional procedure to stop bleeding. Selective embolization of the celiac artery, runoff of branches. Surgery is consulted as a backup. Monitor hemoglobin. SHADIA QUINTANA MD DR: KINZA/vinnie JOB#: [id number] / [id number]
[2018-12-04] MEDS: PANTOPRAZOLE IV PUSH 40 MG VIAL. IVP SCH (13:03)
--- NOTE | 2018-12-04 15:41 | NUR ---
SS following for discharge planning. SS reviewed pt chart. Pt is from home and is currently requiring oxygen. No discharge needs noted at this time. SS will continue to follow for pending discharge needs.
[2018-12-05] VITALS (14 sets, daily range): BP systolic 107–156; BP diastolic 47–92
[2018-12-05 06:35] LABS: BASO % 1 % (0-3); EOS # 0.1 x10^3/uL (0.0-0.7); EOS % 1 % (0-3); HEMATOCRIT 31.3 % (36.0-47.0); HEMOGLOBIN 9.9 g/dL (12.0-15.5); LYMPH # 1.8 x10^3/uL (1.0-4.8); LYMPH % 17 % (24-48); MEAN CORPUSCULAR HEMOGLOBIN 27 pg (25-35); MEAN CORPUSCULAR HGB CONC 32 g/dL (31-37); MEAN CORPUSCULAR VOLUME 85 fL (79-100); MONO # 0.8 x10^3/uL (0.0-1.1); MONO % 8 % (0-9); NEUT # 7.7 x10^3uL (1.8-7.7); NEUT % 74 % (31-73); PLATELET COUNT 190 x10^3/uL (140-400); RED BLOOD COUNT 3.69 x10^6/uL (3.50-5.40); RED CELL DISTRIBUTION WIDTH 15.7 % (11.5-14.5); WHITE BLOOD COUNT 10.4 x10^3/uL (4.0-11.0)
[2018-12-05 06:47] LABS: CALCIUM 8.3 mg/dL (8.5-10.1); CREATININE 0.6 mg/dL (0.6-1.0); GFR 114.4; POTASSIUM 3.4 mmol/L (3.5-5.1)
[2018-12-05] MEDS: PANTOPRAZOLE IV PUSH 40 MG VIAL. IVP SCH (08:11)
--- NOTE | 2018-12-05 10:25 | PDOC ---
PROGRESS NOTES Subjective Subjective no more rectal bleed Objective Objective Vital Signs Date Time Temp Pulse Resp B/P (MAP) Pulse Ox O2 Delivery O2 Flow Rate FiO2 12/05/18 09:00 92 26 138/57 (84) 100 Nasal Cannula 2.0 12/05/18 08:00 98.2 98.2 Intake and Output 12/05/18 06:59 Intake Total 0 ml Output Total 800 ml Balance -800 ml Intake Oral 0 ml Output Urine Total 800 ml Physical Exam Abdomen: Soft, No tenderness, Other (ND) Heart: Regular rate, Normal S1, Normal S2, No murmurs Extremities: No clubbing, No cyanosis General: Alert, Oriented X3, Cooperative, No acute distress HEENT: PERRLA, Mucous membr. moist/pink Lungs: Clear to auscultation, Normal air movement MUSCULOSKELETAL: No deformity, No swelling Neuro: Normal gait, Normal speech Psych/Mental Status: Mental status NL, Mood NL Skin: No rashes, No breakdown Diagnosis Problem List Problems Medical Problems: (1) GI bleed Status: Acute Assessment Assessment Problems Medical Problems: (1) GI bleed Status: Acute FINAL IMPRESSION: 1. Lower gastrointestinal bleed, bleeding coming from the colon, around splenic flexure. 2. Extensive diverticulosis. 3. Hypertension. 4. Arthritis, Occasionally, the patient takes Aleve. PLAN: HB above 9.0 stable no more active bleed clear liquid diet. transfer out of icu. Ni interventions planned. home in 1-2 days. Plan at this time was admit to the hospital, admit to ICU. Hemoglobin q. 6 hours. GI was consulted. Interventional Radiology consulted. Maybe they could do interventional procedure to stop bleeding. Selective embolization of the celiac artery, runoff of branches. Surgery is consulted as a backup. Monitor hemoglobin. Plan Plan of Care Problems Medical Problems: (1) GI bleed Status: Acute Comment Review of Relevant I have reviewed the following items latasha (where applicable) has been applied. Labs Laboratory Tests Test 12/04/18 12:05 12/04/18 18:30 12/05/18 06:05 Hemoglobin 8.9 g/dL (12.0-15.5) 9.1 g/dL (12.0-15.5) 9.9 g/dL (12.0-15.5) White Blood Count 10.4 x10^3/uL (4.0-11.0) Red Blood Count 3.69 x10^6/uL (3.50-5.40) Hematocrit 31.3 % (36.0-47.0) Mean Corpuscular Volume 85 fL (79-100) Mean Corpuscular Hemoglobin 27 pg (25-35) Mean Corpuscular Hemoglobin Concent 32 g/dL (31-37) Red Cell Distribution Width 15.7 % (11.5-14.5) Platelet Count 190 x10^3/uL (140-400) Neutrophils (%) (Auto) 74 % (31-73) Lymphocytes (%) (Auto) 17 % (24-48) Monocytes (%) (Auto) 8 % (0-9) Eosinophils (%) (Auto) 1 % (0-3) Basophils (%) (Auto) 1 % (0-3) Neutrophils # (Auto) 7.7 x10^3uL (1.8-7.7) Lymphocytes # (Auto) 1.8 x10^3/uL (1.0-4.8) Monocytes # (Auto) 0.8 x10^3/uL (0.0-1.1) Eosinophils # (Auto) 0.1 x10^3/uL (0.0-0.7) Basophils # (Auto) 0.0 x10^3/uL (0.0-0.2) Sodium Level 142 mmol/L (136-145) Potassium Level 3.4 mmol/L (3.5-5.1) Chloride Level 105 mmol/L (98-107) Carbon Dioxide Level 27 mmol/L (21-32) Anion Gap 10 (6-14) Blood Urea Nitrogen 14 mg/dL (7-20) Creatinine 0.6 mg/dL (0.6-1.0) Estimated GFR (Cockcroft-Gault) 114.4 Glucose Level 54 mg/dL (70-99) Calcium Level 8.3 mg/dL (8.5-10.1) Medications Current Medications Pantoprazole Sodium (PROTONIX VIAL for IV PUSH) 40 mg DAILYAC IVP Last administered on 12/05/18at 08:11; Start 12/04/18 at 10:30 Vitals/I & O Vital Sign - Last 24 Hours 12/04/18 12/04/18 12/04/18 12/04/18 11:00 12:00 12:00 13:00 Pulse 64 62 84 Resp 12 16 14 B/P (MAP) 118/60 (79) 106/49 (68) 125/54 (77) Pulse Ox 100 100 100 O2 Delivery Nasal Cannula Nasal Cannula Nasal Cannula Nasal Cannula O2 Flow Rate 1.0 1.0 1.0 1.0 12/04/18 12/04/18 12/04/18 12/04/18 14:00 15:00 16:00 16:00 Pulse 82 82 80 Resp 14 16 16 B/P (MAP) 127/57 (80) 118/72 (87) 147/67 (93) Pulse Ox 100 99 99 O2 Delivery Nasal Cannula Nasal Cannula Nasal Cannula Nasal Cannula O2 Flow Rate 1.0 1.0 1.0 1.0 12/04/18 12/04/18 12/04/18 12/04/18 17:00 18:00 19:00 20:00 Temp 98.2 98.2 98.2 98.2 Pulse 71 83 83 92 Resp 20 20 B/P (MAP) 126/49 (74) 136/54 (81) 136/62 (86) 155/68 (97) Pulse Ox 99 99 98 91 O2 Delivery Nasal Cannula Nasal Cannula Nasal Cannula Nasal Cannula O2 Flow Rate 1.0 1.0 1.0 12/04/18 12/04/18 12/04/18 12/04/18 20:00 21:00 22:00 23:00 Pulse 90 93 92 Resp 13 13 13 B/P (MAP) 139/66 (90) 132/66 (88) 144/65 (91) Pulse Ox 97 97 97 O2 Delivery Room Air Nasal Cannula Nasal Cannula Nasal Cannula O2 Flow Rate 2.0 2.0 2.0 12/04/18 12/05/18 12/05/18 12/05/18 23:59 00:01 01:00 02:00 Temp 98.1 98.1 Pulse 81 78 91 Resp 13 18 17 B/P (MAP) 131/59 (83) 156/70 (98) 153/65 (94) Pulse Ox 97 100 100 O2 Delivery Room Air Nasal Cannula Nasal Cannula Nasal Cannula O2 Flow Rate 2.0 2.0 2.0 2.0 12/05/18 12/05/18 12/05/18 12/05/18 03:00 04:00 04:00 05:00 Temp 98.2 98.2 Pulse 86 103 95 Resp 17 25 25 B/P (MAP) 152/58 (89) 146/92 (110) 156/62 (93) Pulse Ox 97 98 100 O2 Delivery Nasal Cannula Room Air Nasal Cannula Nasal Cannula O2 Flow Rate 2.0 2.0 2.0 2.0 12/05/18 12/05/18 12/05/18 12/05/18 06:00 07:00 08:00 08:00 Temp 98.2 98.2 Pulse 106 103 87 Resp 16 18 14 B/P (MAP) 156/78 (104) 142/72 (95) 134/60 (84) Pulse Ox 100 100 100 O2 Delivery Nasal Cannula Nasal Cannula Nasal Cannula Nasal Cannula O2 Flow Rate 2.0 2.0 2.0 2.0 12/05/18 09:00 Pulse 92 Resp 26 B/P (MAP) 138/57 (84) Pulse Ox 100 O2 Delivery Nasal Cannula O2 Flow Rate 2.0 Intake and Output 12/04/18 12/04/18 12/05/18 14:59 22:59 06:59 Intake Total 0 ml 0 ml 0 ml Output Total 300 ml 500 ml Balance 0 ml -300 ml -500 ml SHADIA QUINTANA MD Dec 05, 2018 10:25
--- NOTE | 2018-12-05 10:26 | PDOC ---
MAIK JAY DEPARTURE CLERK 12/05/18 1026: SURGICAL PROGRESS NOTE Subjective resting tolerating diet no bloody stools Vital Signs Vital Signs Date Time Temp Pulse Resp B/P (MAP) Pulse Ox O2 Delivery O2 Flow Rate FiO2 12/05/18 09:00 92 26 138/57 (84) 100 Nasal Cannula 2.0 12/05/18 08:00 98.2 98.2 I&O Intake and Output 12/05/18 07:00 Intake Total 0 ml Output Total 800 ml Balance -800 ml Intake Oral 0 ml Output Urine Total 800 ml General: Alert, Oriented X3, Cooperative, No acute distress Abdomen: Soft, Other (ND, NTTP) Labs Laboratory Tests Test 12/03/18 15:00 12/03/18 15:03 12/03/18 15:10 12/03/18 18:00 Stool Occult Blood Positive (NEG) Urine Collection Type U cath Urine Color Yellow Urine Clarity Clear Urine pH 5.0 Urine Specific [place] 1.025 Urine Protein Negative mg/dL (NEG-TRACE) Urine Glucose (UA) Negative mg/dL (NEG) Urine Ketones (Stick) Negative mg/dL (NEG) Urine Blood Negative (NEG) Urine Nitrite Negative (NEG) Urine Bilirubin Small (NEG) Urine Urobilinogen Dipstick 0.2 mg/dL (0.2 mg/dL) Urine Leukocyte Esterase Negative (NEG) Urine RBC 0 /HPF (0-2) Urine WBC 0 /HPF (0-4) Urine Squamous Epithelial Cells Occ /LPF Urine Transitional Epithelial Cells Occ /LPF Urine Bacteria 0 /HPF (0-FEW) Urine Mucus Marked /LPF White Blood Count 5.8 x10^3/uL (4.0-11.0) Red Blood Count 4.29 x10^6/uL (3.50-5.40) Hemoglobin 11.1 g/dL (12.0-15.5) 9.9 g/dL (12.0-15.5) Hematocrit 34.8 % (36.0-47.0) Mean Corpuscular Volume 81 fL (79-100) Mean Corpuscular Hemoglobin 26 pg (25-35) Mean Corpuscular Hemoglobin Concent 32 g/dL (31-37) Red Cell Distribution Width 15.8 % (11.5-14.5) Platelet Count 261 x10^3/uL (140-400) Neutrophils (%) (Auto) 64 % (31-73) Lymphocytes (%) (Auto) 26 % (24-48) Monocytes (%) (Auto) 9 % (0-9) Eosinophils (%) (Auto) 1 % (0-3) Basophils (%) (Auto) 1 % (0-3) Neutrophils # (Auto) 3.7 x10^3uL (1.8-7.7) Lymphocytes # (Auto) 1.5 x10^3/uL (1.0-4.8) Monocytes # (Auto) 0.5 x10^3/uL (0.0-1.1) Eosinophils # (Auto) 0.1 x10^3/uL (0.0-0.7) Basophils # (Auto) 0.0 x10^3/uL (0.0-0.2) Prothrombin Time 13.4 SEC (11.7-14.0) Prothromb Time International Ratio 1.1 (0.8-1.1) Sodium Level 145 mmol/L (136-145) Potassium Level 4.1 mmol/L (3.5-5.1) Chloride Level 105 mmol/L (98-107) Carbon Dioxide Level 32 mmol/L (21-32) Anion Gap 8 (6-14) Blood Urea Nitrogen 20 mg/dL (7-20) Creatinine 0.7 mg/dL (0.6-1.0) Estimated GFR (Cockcroft-Gault) 95.8 Glucose Level 114 mg/dL (70-99) Calcium Level 9.4 mg/dL (8.5-10.1) Test 12/03/18 19:20 12/03/18 21:55 12/04/18 04:30 12/04/18 12:05 Nasal Screen MRSA (PCR) Negative (Negative) White Blood Count 6.0 x10^3/uL (4.0-11.0) 6.5 x10^3/uL (4.0-11.0) Red Blood Count 2.89 x10^6/uL (3.50-5.40) 3.39 x10^6/uL (3.50-5.40) Hemoglobin 7.4 g/dL (12.0-15.5) 9.2 g/dL (12.0-15.5) 8.9 g/dL (12.0-15.5) Hematocrit 23.8 % (36.0-47.0) 28.3 % (36.0-47.0) Mean Corpuscular Volume 82 fL (79-100) 84 fL (79-100) Mean Corpuscular Hemoglobin 26 pg (25-35) 27 pg (25-35) Mean Corpuscular Hemoglobin Concent 31 g/dL (31-37) 32 g/dL (31-37) Red Cell Distribution Width 15.5 % (11.5-14.5) 15.4 % (11.5-14.5) Platelet Count 198 x10^3/uL (140-400) 175 x10^3/uL (140-400) Neutrophils (%) (Auto) 60 % (31-73) Lymphocytes (%) (Auto) 28 % (24-48) Monocytes (%) (Auto) 11 % (0-9) Eosinophils (%) (Auto) 1 % (0-3) Basophils (%) (Auto) 1 % (0-3) Neutrophils # (Auto) 3.9 x10^3uL (1.8-7.7) Lymphocytes # (Auto) 1.8 x10^3/uL (1.0-4.8) Monocytes # (Auto) 0.7 x10^3/uL (0.0-1.1) Eosinophils # (Auto) 0.1 x10^3/uL (0.0-0.7) Basophils # (Auto) 0.0 x10^3/uL (0.0-0.2) Sodium Level 146 mmol/L (136-145) Potassium Level 4.1 mmol/L (3.5-5.1) Chloride Level 109 mmol/L (98-107) Carbon Dioxide Level 31 mmol/L (21-32) Anion Gap 6 (6-14) Blood Urea Nitrogen 15 mg/dL (7-20) Creatinine 0.7 mg/dL (0.6-1.0) Estimated GFR (Cockcroft-Gault) 95.8 BUN/Creatinine Ratio 21 (6-20) Glucose Level 108 mg/dL (70-99) Calcium Level 8.0 mg/dL (8.5-10.1) Total Bilirubin 0.5 mg/dL (0.2-1.0) Aspartate Amino Transf (AST/SGOT) 12 U/L (15-37) Alanine Aminotransferase (ALT/SGPT) 11 U/L (14-59) Alkaline Phosphatase 57 U/L (46-116) Total Protein 5.6 g/dL (6.4-8.2) Albumin 2.3 g/dL (3.4-5.0) Albumin/Globulin Ratio 0.7 (1.0-1.7) Test 12/04/18 18:30 12/05/18 06:05 Hemoglobin 9.1 g/dL (12.0-15.5) 9.9 g/dL (12.0-15.5) White Blood Count 10.4 x10^3/uL (4.0-11.0) Red Blood Count 3.69 x10^6/uL (3.50-5.40) Hematocrit 31.3 % (36.0-47.0) Mean Corpuscular Volume 85 fL (79-100) Mean Corpuscular Hemoglobin 27 pg (25-35) Mean Corpuscular Hemoglobin Concent 32 g/dL (31-37) Red Cell Distribution Width 15.7 % (11.5-14.5) Platelet Count 190 x10^3/uL (140-400) Neutrophils (%) (Auto) 74 % (31-73) Lymphocytes (%) (Auto) 17 % (24-48) Monocytes (%) (Auto) 8 % (0-9) Eosinophils (%) (Auto) 1 % (0-3) Basophils (%) (Auto) 1 % (0-3) Neutrophils # (Auto) 7.7 x10^3uL (1.8-7.7) Lymphocytes # (Auto) 1.8 x10^3/uL (1.0-4.8) Monocytes # (Auto) 0.8 x10^3/uL (0.0-1.1) Eosinophils # (Auto) 0.1 x10^3/uL (0.0-0.7) Basophils # (Auto) 0.0 x10^3/uL (0.0-0.2) Sodium Level 142 mmol/L (136-145) Potassium Level 3.4 mmol/L (3.5-5.1) Chloride Level 105 mmol/L (98-107) Carbon Dioxide Level 27 mmol/L (21-32) Anion Gap 10 (6-14) Blood Urea Nitrogen 14 mg/dL (7-20) Creatinine 0.6 mg/dL (0.6-1.0) Estimated GFR (Cockcroft-Gault) 114.4 Glucose Level 54 mg/dL (70-99) Calcium Level 8.3 mg/dL (8.5-10.1) Laboratory Tests Test 12/04/18 12:05 12/04/18 18:30 12/05/18 06:05 Hemoglobin 8.9 g/dL (12.0-15.5) 9.1 g/dL (12.0-15.5) 9.9 g/dL (12.0-15.5) White Blood Count 10.4 x10^3/uL (4.0-11.0) Red Blood Count 3.69 x10^6/uL (3.50-5.40) Hematocrit 31.3 % (36.0-47.0) Mean Corpuscular Volume 85 fL (79-100) Mean Corpuscular Hemoglobin 27 pg (25-35) Mean Corpuscular Hemoglobin Concent 32 g/dL (31-37) Red Cell Distribution Width 15.7 % (11.5-14.5) Platelet Count 190 x10^3/uL (140-400) Neutrophils (%) (Auto) 74 % (31-73) Lymphocytes (%) (Auto) 17 % (24-48) Monocytes (%) (Auto) 8 % (0-9) Eosinophils (%) (Auto) 1 % (0-3) Basophils (%) (Auto) 1 % (0-3) Neutrophils # (Auto) 7.7 x10^3uL (1.8-7.7) Lymphocytes # (Auto) 1.8 x10^3/uL (1.0-4.8) Monocytes # (Auto) 0.8 x10^3/uL (0.0-1.1) Eosinophils # (Auto) 0.1 x10^3/uL (0.0-0.7) Basophils # (Auto) 0.0 x10^3/uL (0.0-0.2) Sodium Level 142 mmol/L (136-145) Potassium Level 3.4 mmol/L (3.5-5.1) Chloride Level 105 mmol/L (98-107) Carbon Dioxide Level 27 mmol/L (21-32) Anion Gap 10 (6-14) Blood Urea Nitrogen 14 mg/dL (7-20) Creatinine 0.6 mg/dL (0.6-1.0) Estimated GFR (Cockcroft-Gault) 114.4 Glucose Level 54 mg/dL (70-99) Calcium Level 8.3 mg/dL (8.5-10.1) Problem List Problems Medical Problems: (1) GI bleed Status: Acute Assessment/Plan hgb stable no further bleeding supportive measures MATTHEW GUZMAN MD 12/05/18 1455: SURGICAL PROGRESS NOTE Assessment/Plan Pt seen and examined. Agree with MsChris Jay's note Pt without c/o abd soft, cont supportive care. MAIK JAY APRN Dec 05, 2018 10:26 MATTHEW GUZMAN MD Dec 05, 2018 14:55
[2018-12-05] MEDS ORDERED: POTASSIUM CHLORIDE 20 MEQ TABLET.ER. PO ONE (11:00)
--- NOTE | 2018-12-05 11:15 | PDOC ---
Subjective: Subjective: Feeling good, no bleeding. Objective: Objective: Per RN- no bleeding since yesterday afternoon. Vital Signs: Vital Signs Date Time Temp Pulse Resp B/P (MAP) Pulse Ox O2 Delivery O2 Flow Rate FiO2 12/05/18 09:00 92 26 138/57 (84) 100 Nasal Cannula 2.0 12/05/18 08:00 98.2 98.2 Labs: Laboratory Tests Test 12/04/18 12:05 12/04/18 18:30 12/05/18 06:05 Hemoglobin 8.9 g/dL 9.1 g/dL 9.9 g/dL White Blood Count 10.4 x10^3/uL Red Blood Count 3.69 x10^6/uL Hematocrit 31.3 % Mean Corpuscular Volume 85 fL Mean Corpuscular Hemoglobin 27 pg Mean Corpuscular Hemoglobin Concent 32 g/dL Red Cell Distribution Width 15.7 % Platelet Count 190 x10^3/uL Neutrophils (%) (Auto) 74 % Lymphocytes (%) (Auto) 17 % Monocytes (%) (Auto) 8 % Eosinophils (%) (Auto) 1 % Basophils (%) (Auto) 1 % Neutrophils # (Auto) 7.7 x10^3uL Lymphocytes # (Auto) 1.8 x10^3/uL Monocytes # (Auto) 0.8 x10^3/uL Eosinophils # (Auto) 0.1 x10^3/uL Basophils # (Auto) 0.0 x10^3/uL Sodium Level 142 mmol/L Potassium Level 3.4 mmol/L Chloride Level 105 mmol/L Carbon Dioxide Level 27 mmol/L Anion Gap 10 Blood Urea Nitrogen 14 mg/dL Creatinine 0.6 mg/dL Estimated GFR (Cockcroft-Gault) 114.4 Glucose Level 54 mg/dL Calcium Level 8.3 mg/dL PE: GEN: NAD LUNGS: CTAB HEART: RRR ABD: NABS, S/ND/NT NEURO/PSYCH: A & O 3 A/P: Suspected diverticular bleed -- No further bleeding, Hgb stable. Try clears. MILENA ADRIAN Dec 05, 2018 11:15
--- NOTE | 2018-12-05 17:12 | NUR ---
Pt. got to floor via WC a little before 1600 with family at side. Pt. made comfortable and oriented to room, unit, and hospital policies. Head to toe assessment completed. Will continue to monitor pt.
[2018-12-06 03:00] VITALS: BP 129/67
[2018-12-06 07:15] VITALS: BP 145/80
--- NOTE | 2018-12-06 09:58 | PDOC ---
PROGRESS NOTES Subjective Subjective no more active bleed Objective Objective Vital Signs Date Time Temp Pulse Resp B/P (MAP) Pulse Ox O2 Delivery O2 Flow Rate FiO2 12/06/18 07:15 98.9 84 18 145/80 (101) 95 Room Air 98.9 12/05/18 11:00 2.0 Intake and Output 12/06/18 07:00 Intake Total 1690 ml Output Total 300 ml Balance 1390 ml Intake Oral 690 ml IV Total 1000 ml Output Urine Total 300 ml # Voids 3 Physical Exam Abdomen: Soft, Other (ND, NTTP) Heart: Regular rate, Normal S1, Normal S2, No murmurs Extremities: No clubbing, No cyanosis General: Alert, Oriented X3, Cooperative, No acute distress HEENT: PERRLA, Mucous membr. moist/pink Lungs: Clear to auscultation, Normal air movement MUSCULOSKELETAL: No deformity, No swelling Neuro: Normal gait, Normal speech Psych/Mental Status: Mental status NL, Mood NL Skin: No rashes, No breakdown Diagnosis Problem List Problems Medical Problems: (1) GI bleed Status: Acute Assessment Assessment Problems Medical Problems: (1) GI bleed Status: Acute FINAL IMPRESSION: 1. Lower gastrointestinal bleed, bleeding coming from the colon, around splenic flexure. 2. Extensive diverticulosis. 3. Hypertension. 4. Arthritis, Occasionally, the patient takes Aleve. PLAN:advance diet today HB above 9.0 stable no more active bleed on clear liquid diet. transferred out of icu. No interventions planned. home tomorrow. pot 3.4 replaced Plan Plan of Care Problems Medical Problems: (1) GI bleed Status: Acute Comment Review of Relevant I have reviewed the following items latasha (where applicable) has been applied. Medications Current Medications Potassium Chloride (Klor-Con) 20 meq 1X ONCE PO Last administered on at 11:47; Start 12/05/18 at 11:00; Stop 12/05/18 at 11:01; Status DC Vitals/I & O Vital Sign - Last 24 Hours 12/05/18 12/05/18 12/05/18 12/05/18 11:00 15:00 17:05 19:00 Temp 98.3 98.5 98.3 98.3 98.5 98.3 Pulse 91 88 93 Resp 17 16 20 B/P (MAP) 125/58 (80) 135/54 (81) 136/64 (88) Pulse Ox 100 97 91 O2 Delivery Nasal Cannula Room Air Room Air O2 Flow Rate 2.0 12/05/18 12/05/18 12/06/18 12/06/18 20:04 23:00 03:00 07:15 Temp 99.9 99.5 98.9 99.9 99.5 98.9 Pulse 106 98 84 Resp 20 18 18 B/P (MAP) 107/47 (67) 129/67 (87) 145/80 (101) Pulse Ox 91 91 95 O2 Delivery Room Air Room Air Intake and Output 12/05/18 12/05/18 12/06/18 15:00 23:00 07:00 Intake Total 690 ml 1000 ml Output Total 300 ml Balance 390 ml 1000 ml Nutrition Consultation Dietary Evaluation: Recommendations by RD: Decrease Calorie Intake, Protein supplementation Comments: REC Ensure clear BID when on clear diet REC advance diet as able per GI to goal diet cardiac. will add oral supplements as needed/desired Expected Outcomes/Goals: Diet advancement Malnutrition Findings: Body Fat Depletion (Non Severe: Mild Depletion Weight Status: Appropriate SHADIA QUINTANA MD Dec 06, 2018 09:58
--- NOTE | 2018-12-06 10:08 | PDOC ---
SURGICAL PROGRESS NOTE Subjective Pt without c/o, nicole PO, no further bleeding Vital Signs Vital Signs Date Time Temp Pulse Resp B/P (MAP) Pulse Ox O2 Delivery O2 Flow Rate FiO2 12/06/18 07:15 98.9 84 18 145/80 (101) 95 Room Air 98.9 12/05/18 11:00 2.0 I&O Intake and Output 12/06/18 06:59 Intake Total 1690 ml Output Total 300 ml Balance 1390 ml Intake Oral 690 ml IV Total 1000 ml Output Urine Total 300 ml # Voids 3 General: Alert, Oriented X3, Cooperative, No acute distress Abdomen: Soft, No tenderness Labs Laboratory Tests Test 12/04/18 12:05 12/04/18 18:30 12/05/18 06:05 Hemoglobin 8.9 g/dL (12.0-15.5) 9.1 g/dL (12.0-15.5) 9.9 g/dL (12.0-15.5) White Blood Count 10.4 x10^3/uL (4.0-11.0) Red Blood Count 3.69 x10^6/uL (3.50-5.40) Hematocrit 31.3 % (36.0-47.0) Mean Corpuscular Volume 85 fL (79-100) Mean Corpuscular Hemoglobin 27 pg (25-35) Mean Corpuscular Hemoglobin Concent 32 g/dL (31-37) Red Cell Distribution Width 15.7 % (11.5-14.5) Platelet Count 190 x10^3/uL (140-400) Neutrophils (%) (Auto) 74 % (31-73) Lymphocytes (%) (Auto) 17 % (24-48) Monocytes (%) (Auto) 8 % (0-9) Eosinophils (%) (Auto) 1 % (0-3) Basophils (%) (Auto) 1 % (0-3) Neutrophils # (Auto) 7.7 x10^3uL (1.8-7.7) Lymphocytes # (Auto) 1.8 x10^3/uL (1.0-4.8) Monocytes # (Auto) 0.8 x10^3/uL (0.0-1.1) Eosinophils # (Auto) 0.1 x10^3/uL (0.0-0.7) Basophils # (Auto) 0.0 x10^3/uL (0.0-0.2) Sodium Level 142 mmol/L (136-145) Potassium Level 3.4 mmol/L (3.5-5.1) Chloride Level 105 mmol/L (98-107) Carbon Dioxide Level 27 mmol/L (21-32) Anion Gap 10 (6-14) Blood Urea Nitrogen 14 mg/dL (7-20) Creatinine 0.6 mg/dL (0.6-1.0) Estimated GFR (Cockcroft-Gault) 114.4 Glucose Level 54 mg/dL (70-99) Calcium Level 8.3 mg/dL (8.5-10.1) Problem List Problems Medical Problems: (1) GI bleed Status: Acute Assessment/Plan appears resolved no surgical plans agree with plans per primary and GI MATTHEW GUZMAN MD Dec 06, 2018 10:08
[2018-12-06 10:56] VITALS: BP 162/98
--- NOTE | 2018-12-06 11:27 | NUR ---
SW following, discussed with RN. Pt is from home alone. RN advised no SW needs and anticipates pt will discharge home tomorrow. SW will continue to follow.
[2018-12-06 15:00] VITALS: BP 142/89
--- NOTE | 2018-12-06 16:29 | PDOC ---
G I PROGRESS NOTE Subjective No further bleeding. W/o complaints. Physical Exam Lungs clear. RRR Abdomen soft, not tender nor distended. Review of Relevant I have reviewed the following items latasha (where applicable) has been applied. Labs Laboratory Tests Test 12/04/18 18:30 12/05/18 06:05 Hemoglobin 9.1 g/dL (12.0-15.5) 9.9 g/dL (12.0-15.5) White Blood Count 10.4 x10^3/uL (4.0-11.0) Red Blood Count 3.69 x10^6/uL (3.50-5.40) Hematocrit 31.3 % (36.0-47.0) Mean Corpuscular Volume 85 fL (79-100) Mean Corpuscular Hemoglobin 27 pg (25-35) Mean Corpuscular Hemoglobin Concent 32 g/dL (31-37) Red Cell Distribution Width 15.7 % (11.5-14.5) Platelet Count 190 x10^3/uL (140-400) Neutrophils (%) (Auto) 74 % (31-73) Lymphocytes (%) (Auto) 17 % (24-48) Monocytes (%) (Auto) 8 % (0-9) Eosinophils (%) (Auto) 1 % (0-3) Basophils (%) (Auto) 1 % (0-3) Neutrophils # (Auto) 7.7 x10^3uL (1.8-7.7) Lymphocytes # (Auto) 1.8 x10^3/uL (1.0-4.8) Monocytes # (Auto) 0.8 x10^3/uL (0.0-1.1) Eosinophils # (Auto) 0.1 x10^3/uL (0.0-0.7) Basophils # (Auto) 0.0 x10^3/uL (0.0-0.2) Sodium Level 142 mmol/L (136-145) Potassium Level 3.4 mmol/L (3.5-5.1) Chloride Level 105 mmol/L (98-107) Carbon Dioxide Level 27 mmol/L (21-32) Anion Gap 10 (6-14) Blood Urea Nitrogen 14 mg/dL (7-20) Creatinine 0.6 mg/dL (0.6-1.0) Estimated GFR (Cockcroft-Gault) 114.4 Glucose Level 54 mg/dL (70-99) Calcium Level 8.3 mg/dL (8.5-10.1) Vitals/I & O Vital Sign - Last 24 Hours 12/05/18 12/05/18 12/05/18 12/05/18 17:05 19:00 20:04 23:00 Temp 98.3 99.9 98.3 99.9 Pulse 93 106 Resp 20 20 B/P (MAP) 136/64 (88) 107/47 (67) Pulse Ox 91 91 O2 Delivery Room Air Room Air 12/06/18 12/06/18 12/06/18 12/06/18 03:00 07:15 08:00 10:56 Temp 99.5 98.9 97.9 99.5 98.9 97.9 Pulse 98 84 98 Resp 18 18 16 B/P (MAP) 129/67 (87) 145/80 (101) 162/98 (119) Pulse Ox 91 95 97 O2 Delivery Room Air Room Air Room Air 12/06/18 15:00 Temp 97.2 97.2 Pulse 84 Resp 18 B/P (MAP) 142/89 (106) Pulse Ox 96 O2 Delivery Room Air Intake and Output 12/05/18 12/05/18 12/06/18 15:00 23:00 07:00 Intake Total 690 ml 1000 ml Output Total 300 ml Balance 390 ml 1000 ml Problem List Problems Medical Problems: (1) GI bleed Status: Acute Assessment Probable diverticular bleed; clinically stopped. Plan of Care: Continue current Tx, Mgmt Plan of Care Note Could consider outpatient colonoscopy. JELANI KAPADIA MD Dec 06, 2018 16:29
[2018-12-06 19:00] VITALS: BP 164/80
[2018-12-06 22:49] VITALS: BP 181/95
[2018-12-07 02:49] VITALS: BP 151/79
[2018-12-07 07:00] VITALS: BP 171/89
--- NOTE | 2018-12-07 08:38 | PDOC ---
SURGICAL PROGRESS NOTE Subjective Pt without c/o, nicole PO well, no further bleeding Vital Signs Vital Signs Date Time Temp Pulse Resp B/P (MAP) Pulse Ox O2 Delivery O2 Flow Rate FiO2 12/07/18 07:00 100.3 104 18 171/89 (116) 95 Room Air 100.3 I&O Intake and Output 12/07/18 06:59 Intake Total 1020 ml Balance 1020 ml Intake Oral 1020 ml # Voids 2 General: Alert, Oriented X3, Cooperative, No acute distress Abdomen: Soft, No tenderness Problem List Problems Medical Problems: (1) GI bleed Status: Acute Assessment/Plan seems clinically stable cont supportive care no surgical plans MATTHEW GUZMAN MD Dec 07, 2018 08:37
--- NOTE | 2018-12-07 09:41 | PDOC ---
PROGRESS NOTES Subjective Subjective feels good want to go home Objective Objective Vital Signs Date Time Temp Pulse Resp B/P (MAP) Pulse Ox O2 Delivery O2 Flow Rate FiO2 12/07/18 07:00 100.3 104 18 171/89 (116) 95 Room Air 100.3 Intake and Output 12/07/18 07:00 Intake Total 1020 ml Balance 1020 ml Intake Oral 1020 ml # Voids 2 Physical Exam Abdomen: Soft, No tenderness Heart: Regular rate, Normal S1, Normal S2, No murmurs Extremities: No clubbing, No cyanosis General: Alert, Oriented X3, Cooperative, No acute distress HEENT: PERRLA, Mucous membr. moist/pink Lungs: Clear to auscultation, Normal air movement MUSCULOSKELETAL: No deformity, No swelling Neuro: Normal gait, Normal speech Psych/Mental Status: Mental status NL, Mood NL Skin: No rashes, No breakdown Diagnosis Problem List Problems Medical Problems: (1) GI bleed Status: Acute Assessment Assessment Problems Medical Problems: (1) GI bleed Status: Acute FINAL IMPRESSION: 1. Lower gastrointestinal bleed, bleeding coming from the colon, around splenic flexure.Diverticular bleed? 2. Extensive diverticulosis. 3. Hypertension. 4. Arthritis, Occasionally, the patient takes Aleve. PLAN: d/c home today will do out pt colonoscopy. tolerating diet well. HB above 9.0 stable no more active bleed Plan Plan of Care Problems Medical Problems: (1) GI bleed Status: Acute Comment Review of Relevant I have reviewed the following items latasha (where applicable) has been applied. Vitals/I & O Vital Sign - Last 24 Hours 12/06/18 12/06/18 12/06/18 12/06/18 10:56 15:00 19:00 20:00 Temp 97.9 97.2 98.7 97.9 97.2 98.7 Pulse 98 84 97 Resp 16 18 18 B/P (MAP) 162/98 (119) 142/89 (106) 164/80 (108) Pulse Ox 97 96 95 O2 Delivery Room Air Room Air Room Air Room Air 12/06/18 12/07/18 12/07/18 22:49 02:49 07:00 Temp 98.5 98.7 100.3 98.5 98.7 100.3 Pulse 99 100 104 Resp 18 17 18 B/P (MAP) 181/95 (123) 151/79 (103) 171/89 (116) Pulse Ox 92 92 95 O2 Delivery Room Air Room Air Room Air Intake and Output 12/06/18 12/06/18 12/07/18 15:00 23:00 07:00 Intake Total 480 ml 340 ml 200 ml Balance 480 ml 340 ml 200 ml Nutrition Consultation Dietary Evaluation: Recommendations by RD: Decrease Calorie Intake, Protein supplementation Comments: REC Ensure clear BID when on clear diet REC advance diet as able per GI to goal diet cardiac. will add oral supplements as needed/desired Expected Outcomes/Goals: Diet advancement Malnutrition Findings: Body Fat Depletion (Non Severe: Mild Depletion Weight Status: Appropriate SHADIA QUINTANA MD Dec 07, 2018 09:41
--- NOTE | 2018-12-07 09:56 | NUR ---
Spoke with Emmanuelle Hoskins, she is aware Dr Santiago wants the pt to have an OP procedure. Emmanuelle stated she will take care of setting up outpatient procedure. Ok'd pt's d/c.
--- NOTE | 2018-12-07 09:57 | NUR ---
This nurse spoke with Dr. Santiago about pt. fever, heart rate, and latest labs. Dr. Santiago stated still ok to DC pt. Dr. Santiago aware of low potassium from last lab draw and stated it was replaced in the ICU. Pt. ok to DC. No new labs needed.
[2018-12-07 11:03] VITALS: BP 158/78
--- NOTE | 2018-12-07 11:10 | PDOC ---
Subjective: Subjective: On the phone - says feeling good and going home. Objective: Objective: RN paged me - reports Dr. Santiago wanted outpt EGD scheduled before she leaves today. Reviewed Dr. Santiago's note - recs for outpt colonoscopy. Vital Signs: Vital Signs Date Time Temp Pulse Resp B/P (MAP) Pulse Ox O2 Delivery O2 Flow Rate FiO2 12/07/18 11:03 98.1 102 20 158/78 (104) 95 Room Air 98.1 PE: GEN: NAD, talking on the phone LUNGS: room air ABD: S/ND/NT NEURO/PSYCH: A & O 3 A/P: Suspected diverticular bleed - resolved -- DC per primary. Will review recs for outpt colonoscopy w/ Dr. Bennett - our office can contact to schedule. MILENA ADRIAN Dec 07, 2018 11:10
--- NOTE | 2018-12-07 12:20 | NUR ---
SW following for discharge planning. Discussed with RN, pt is discharging home today with . No SW needs.
--- NOTE | 2018-12-07 16:15 | NUR ---
Discharge Note: AELXANDER CALI[address] [place] [address] Discharge instructions and discharge home medications reviewed with Patient and a copy given. All questions have been answered and understanding verbalized. The following instructions and handouts were given: gastrointestinal bleeding, hypokalemia. Discontinued lines and drains: rt forearm IV, intact. Patient discharged to home with self-care via wheelchair to private vehicle. Pt left stable, after self-dressing and gathering belongings.
--- NOTE | 2018-12-11 15:13 | PDOC ---
Provider Note Provider Note Discharge summary dictated.#[id number] SHADIA QUINTANA MD Dec 11, 2018 15:13
--- NOTE | 2018-12-11 21:51 | DS ---
DATE OF DISCHARGE: 12/07/2018 REASON FOR ADMISSION TO THE HOSPITAL: Lower GI bleed. CONSULTATIONS: Dr. Bennett, Dr. Hansen. PROCEDURES DONE: 1. CT scan. 2. GI bleeding scan. 3. Transfusion 1 unit. COMPLICATIONS NOTED: None. HOSPITAL COURSE: The patient is an 87-year-old female patient who was found to have elli rectal bleed she noticed when she was in the buddhist on Tuesday, came to the Emergency Room. She continues to ooze blood. The patient had a CT scan was done, showed diverticulosis; GI bleeding scan showed bleeding coming from possible close to splenic flexure area. The patient was admitted to the ICU, was monitored hemoglobin. Hemoglobin went down to 7, given 1 unit of packed RBC, after that hemoglobin remained stable. Seen by GI, seen by Surgery as a backup and Interventional Radiology. The patient remained hemodynamically stable, her hemoglobin after 1 unit stayed around 9, no further bleeding and it was felt that the patient could be discharged home, can do colonoscopy as an outpatient. FINAL DIAGNOSES: 1. Lower gastrointestinal bleed, probably diverticular bleed. 2. Extensive diverticulosis. 3. Mild hypertension. DISPOSITION: Home. See [facility] for discharge medications. Scheduled for outpatient colonoscopy in a couple of weeks. SHADIA QUINTANA MD DR: KINZA/nts JOB#: [id number] / [id number]
== END 2018-12-07 12:25 | disposition home or self-care (01) | DRG 378 ==
LOC: ER 14:16 → 1 WEST ICU 16:34 → 5 SOUTH 12-05 15:41
PROVIDERS: ADMIT Internal Medicine; ATTEND Internal Medicine
PROC: 30233N1 Transfusion of Nonautologous Red Blood Cells into Peripheral Vein, Percutaneous Approach (ICD-10-PCS; principal; 2018-12-03)
DX: K57.31 Diverticulosis of large intestine without perforation or abscess with bleeding (principal); D62 Acute posthemorrhagic anemia; E44.0 Moderate protein-calorie malnutrition; I10 Essential (primary) hypertension; D86.9 Sarcoidosis, unspecified; I71.4 Abdominal aortic aneurysm, without rupture; N20.0 Calculus of kidney; M19.90 Unspecified osteoarthritis, unspecified site; K21.9 Gastro-esophageal reflux disease without esophagitis; Z90.710 Acquired absence of both cervix and uterus; Z87.01 Personal history of pneumonia (recurrent)
CPT/HCPCS: 36415; 74177; 78278; 80048; 80053; 81001; 82274; 85018; 85025; 85027; 85610; 86850; 86900; 86901; 86920; 87641; 96360; 96374; A9560; C9113; J2405; J7030; P9016; Q9967; 99285-25

== ENCOUNTER → 2019-01-08 | Day surgery (SDC) | payer MEDICARE, OTHER ==
[~2019-01-08] MED LIST: IV RINGERS,LACTATED 1000ML 1,000 ML IV SCH; PROPOFOL 20 ML IV ONE
--- NOTE | 2019-01-08 14:54 | PDOC1 ---
History and Physical Date of Admission Date of Admission DATE: 01/08/19 TIME: 14:48 Identification/Chief Complaint Chief Complaint CRC screening. Source Source: Chart review, Patient History of Present Illness History of Present Illness 88 y/o female desires CRC screening. No prior colonoscopy. H/o LGI bleed, probably from known diverticulosis on CT. H/o GERD? Otherwise no GI history or complaints. Brother with colon Ca. Past Medical History Cardiovascular: HTN, Other (abd aortic aneurysm) Pulmonary: Other (Sarcoidosis?) Renal/: Other (nephrolithiasis) Past Surgical History Past Surgical History: Hysterectomy Family History Family History: Cancer (breast), Coronary Artery Disease, Stroke Social History Smoke: No ALCOHOL: none Drugs: None Current Medications Current Medications Current Medications Ringer's Solution 1,000 ml @ 50 mls/hr Q20H IV ; Start 01/08/19 at 12:51; Stop 01/09/19 at 00:50 Propofol 20 ml @ As Directed STK-MED ONCE IV ; Start 01/08/19 at 14:35; Stop 01/08 at 14:36; Status DC Active Scripts Active No Active Prescriptions or Reported Medications Allergies Allergies: Coded Allergies: No Known Drug Allergies (Unverified , 01/08/19) ROS Review of System Otherwise negative. Physical Exam General: Alert, Oriented X3, Cooperative, No acute distress Lungs: Clear to auscultation, Normal air movement Heart: S1S2, RRR, no gallops, no murmurs Abdomen: Normal bowel sounds, Soft, No tenderness, No hepatosplenomegaly, No masses Rectal Exam: deferred (to procedure) Extremities: No cyanosis, No edema Skin: No significant lesion Neuro: Normal gait, Normal speech, Strength at 5/5 X4 ext, Normal tone, Sensation intact, Cranial nerves 3-12 NL, Reflexes 2+ Psych/Mental Status: Mental status NL, Mood NL Vitals Vitals Vital Signs Date Time Temp Pulse Resp B/P (MAP) Pulse Ox O2 Delivery O2 Flow Rate FiO2 01/08/19 14:43 98.8 98 16 94 98.8 VTE Prophylaxis Ordered VTE Prophylaxis Devices: No VTE Pharmacological Prophylaxi: No Assessment/Plan Assessment/Plan IMP: Family h/o CRC; no prior screening. PLAN: colonoscopy. JELANI KAPADIA MD Jan 08, 2019 14:54
--- NOTE | 2019-01-08 15:19 | PDOC4 ---
PROCEDURE Procedure Colonoscopy with biopsy Indication: Screen, FH CRC Meds: per anesthesia Findings: ADI--normal --Colonoscope advanced to cecum. Prep good. Mucosa normal. Multiple diverticula descending and sigmoid. 2, 2-3mm polyps, descending, biopsied off. Internal hemorrhoids on retroflex. Otherwise normal. Monique. well. IMP: tiny polyps diverticulosis Internal hemorrhoids. REC: Resume home meds and diet. Await path. F/u in 2 weeks. JELANI KAPADIA MD Jan 08, 2019 15:18
[2019-01-08 15:30] VITALS: BP 127/64
--- NOTE | 2019-01-10 15:07 | PATHOLOGY ---
[facility] Accession Number: [id number] . 01 Material submitted: . DISTAL DESCENDING COLON POLYP . 01 Clinical history: . Screening . 02 Diagnosis: Colon biopsies, distal descending colon polyp: - Consistent with prominent mucosal folds, with several mucosal-associated lymphoid aggregates. . (JPM:mm; 01/10/2019) [facility]/01/10/2019 . 02 Comment: There are no adenomatous changes or evidence of malignancy. . (JPM:mml; 01/10/2019) . 02 Electronically signed: . Fredrick Max MD, Pathologist NPI- [id number] . 01 Gross description: . The specimen is received in formalin, labeled "Kathy Fofana, distal descending colon polyp", are 2 greer soft tissues measuring 0.2 cm and 0.3 cm in greatest dimension, entirely submitted in A1. ([facility]; 01/09/2019) [facility] . 02 Pathologist provided ICD-10: Z12.11 . 02 CPT . 546124 Specimen Comment: A courtesy copy of this report has been sent to Specimen Comment: [phone], . Specimen Comment: Report sent to / DR QUINTANA Performed at: 01 [facility] [address], [place], [place] [id number] MD Jono Loo MD Phone: [phone] Performed at: 02 [facility] [address] [place], [place] [id number] MD Fredrick Mxa MD Phone: [phone]
== END | disposition home or self-care (01) ==
LOC: ENDOS 14:13
PROVIDERS: ATTEND Internal Medicine Gastroenterology
DX: Z12.11 Encounter for screening for malignant neoplasm of colon (principal); K63.5 Polyp of colon; K57.30 Diverticulosis of large intestine without perforation or abscess without bleeding; K64.0 First degree hemorrhoids; Z80.0 Family history of malignant neoplasm of digestive organs; I10 Essential (primary) hypertension; I71.4 Abdominal aortic aneurysm, without rupture; Z87.442 Personal history of urinary calculi; Z90.710 Acquired absence of both cervix and uterus; Z82.3 Family history of stroke; Z82.49 Family history of ischemic heart disease and other diseases of the circulatory system; Z79.899 Other long term (current) drug therapy; D64.9 Anemia, unspecified
CPT/HCPCS: 45380; 88305; J2704